=== PATIENT | male | born 1955 | race Caucasian/White ===

== ENCOUNTER 2024-09-29 13:53 | Outpatient (AMB) | payer MEDICARE, MEDICAID, SELFPAY ==
--- NOTE | 2024-09-29 13:59 | ORTHONT_ITS ---
Med/Allergies Allergies & Medications Allergies codeine Adverse Reaction (Severe, Verified 09/08/24 13:45) CHEST PAINS Subjective Visit Visit for: follow up visit Immunization / Flu Flu Vaccine in the Last 12 Months: Yes Flu Vaccine Exclusion Criteria: Already Received History of Present Illness Chief complaint: left knee pain Patient is a 68-year-old male who presents today for evaluation of his left knee. He has severe left knee osteoarthritis. This been ongoing for several years but is worsened recently. We discussed nonoperative operative options. He reports the pain is significantly affecting his quality life and happiness. He has had over 5 injections in the knee. He reports knee pains been ongoing for 10 years. We tried anti-inflammatories as well as injections. The pain is affecting his quality life and happiness. He has recovered well from his left hip replacement Personal History Red flag PMH: smoker (non smoker ) Pain Pain level (0-10): 0 Pain quality: dull Pain timing: increases with activity and stairs Associated signs & symptoms: none Ambulatory data Ambulatory device: none Treatments Improvement with previous injections: No Improvement with PT: No Improvement with NSAIDS: no Review of Systems Review of Systems: All systems negative unless otherwise noted in HPI. Exam Exam Patient is in no acute distress and is cooperative with the examination today. Patient has a normal mood and affect. Breathing is nonlabored. In no respiratory distress. Bilateral extremities were evaluated and demonstrates sensation intact to light touch. Palpable pedal pulses are present. No significant edema is present. Left hip incision is clean dry intact. He is walking with minimal limp. Left knee is stable to varus and valgus stress. Range of motion is 0 to 110 degrees. He is tender palpation medially X-rays were personally reviewed by me. This demonstrates complete Obliteration of the medial joint space. There are osteophytes medially. Assessment and Plan Problem List (1) Status post left hip replacement: Status: Acute Plan: 68-year-old Male status post left total hip replacement. He is doing well. He has minimal pain. He reports the left knee is actually what is significantly bothering him. He has complete obliteration of the medial joint space with. We talked about total knee replacement and he would like to proceed with that. He is set up for a left knee surgery in 2 weeks The nature and purpose of the total knee replacement, alternative method(s) of treatment, the material risks involved, and the possibility of complications were fully explained to the patient. The patient does NOT have any of the following contraindications to TKA: - Active infection of the knee joint, OR - Active systemic bacteremia, OR - Active skin infection or open wound at surgical site, OR - Neuropathic arthritis, OR - Severe, rapidly progressive neurological disease, OR - Severe medical condition that makes risks of surgery outweigh the potential benefit The patient was told the most common risks and complications associated with a total knee replacement include, but are not limited to: blood clots in the leg, fatal pulmonary embolism, dislocation of the prosthesis, intraoperative and postoperative fractures of the femur or tibia, infection, failure of the prosthesis or grafting materials, complications from anesthesia, reactions to blood transfusions, postoperative leg length inequality, instability of the knee replacement, nerve damage or injury, vascular injury, delayed wound healing, infection, other injury or even . In addition, there are risks associated with anesthesia given during this operation. Also, the patient was told that after undergoing a total knee replacement there may still be persistent pain or disability. The patient was informed that the success of this operation in part depends upon the mechanical devices which are going to be implanted and that these devices can fail or malfunction, and may need to be repaired or replaced and there are no guarantees as to the longevity of this device or its parts and that it or its parts could fail prematurely. The patient was also notified that during the course of surgery, there may be a need to use bone graft from donors, and that any bone graft used will be carefully screened for communicable diseases, including AIDS, hepatitis, Tono-Creutzfeldt, or other diseases, but despite the screening procedures, there is a small chance that they could contract one of these diseases. Finally, the patient was asked to follow completely and fully with all advice and recommended treatments, and that recovery and ultimate outcome are affected by their compliance with recommended treatment. We discussed the risks, benefits and treatment alternatives, and the patient is interested in proceeding with surgery. We will try to set this up as expeditiously as possible When he comes back from [place] Advanced Care Planning Discussion Advance care planning discussed with:: patient Past Medical History Past Medical History Have you ever been diagnosed with any of the following: Neurological Problems Seizures: No Subdural Hematoma: Yes Cardiology Problems Myocardial Infarction: Yes (2014? small) Congestive Heart Failure: No Edema: No Cellulitis: No Hypertension: Yes Varicose Veins: Yes Respiratory Problems Chronic Obstructive Pulmonary Disease (COPD): Yes Asthma: Yes Pneumonia: No Tuberculosis: No Sleep Apnea: No Smoking: No Smoking Exposure: No Stomache/Intestinal Problems Hepatitis: No Ulcer: Yes Gastroesophageal Reflux Disease: Yes Genital/Urinary Problems Renal Disease: No Musculoskeletal Problems Arthritis: Yes Carpal Tunnel Syndrome: Yes Fractures: Yes (pelvic bone at 19yrs old) Head,Eye,Nose,Throat Problems Cataracts: Yes Endocrine Problems Diabetes Mellitus Type 1: No Diabetes Mellitus Type 2: No Blood Problems Sickle Cell Disease: No Psychologic Problems Depression: Yes Anxiety: Yes Other Problems Hospitalization: Yes Shingles: No Falls: Yes Blood Transfusions: Yes Blood Transfusion Reaction: No Anesthesia Reactions: No Chemotherapy: No Radiation Therapy: No MRSA: No Chicken Pox: Yes Measles: Yes Mumps: Yes Cancer: Yes Surgical History Pacemaker: No
== END 2024-09-29 14:02 | disposition home or self-care (01) ==
LOC: HODSRG 13:53
PROVIDERS: PCP Family Medicine; Referring Provider Family Medicine; Supervising Provider Orthopaedic Surgery Adult Reconstructive Orthopaedic Surgery; Visit Provider Orthopaedic Surgery Adult Reconstructive Orthopaedic Surgery
DX: Z96.642 Presence of left artificial hip joint (principal); M17.12 Unilateral primary osteoarthritis, left knee; I10 Essential (primary) hypertension
CPT/HCPCS: 99213; G0463

== ENCOUNTER 2024-10-27 10:03 | Outpatient (AMB) | payer MEDICARE, MEDICAID, SELFPAY ==
[2024-10-27 10:51] VITALS: BP 122/80; PULSE 87; RESP 19; TEMP 36.1; O2SAT 94; BMI 32.4
--- NOTE | 2024-10-27 10:51 | ORTHONT_ITS ---
Vital signs 10/27/24 10:51 Height 1.85 m Height Method Stated Weight 111 kg Weight Measurement Method Standing Scale BMI 32.4 BP 122/80 Blood Pressure Source Automatic Cuff Blood Pressure Location Right Upper Arm Position Sitting Respiration 19 Pulse 87 Pulse Source Monitor Temp 97.0 F Temp Source Temporal Artery Scan Pulse Oximetry (%) 94 L Oxygen Delivery Method Room Air Med/Allergies Allergies & Medications Allergies codeine Adverse Reaction (Severe, Verified 10/27/24 10:52) CHEST PAINS Medication Reconciliation albuterol sulfate 90 mcg/actuation aerosol inhaler 2 puff inhalation Q6H PRN asthma 06/27/20 [History Confirmed 10/27/24] tamsulosin 0.4 mg capsule (Flomax) 0.4 mg PO QDAY 01/06/24 [History Confirmed 10/27/24] meloxicam 7.5 mg tablet 7.5 mg PO QDAY #45 tabs 03/24/24 [Rx Confirmed 10/27/24] acetaminophen 500 mg tablet (Acetaminophen Extra Strength) 1,000 mg (2 x 500 mg) PO Q6H PRN pain #90 tabs 10/12/24 [Rx Confirmed 10/27/24] aspirin 81 mg tablet,delayed release 81 mg PO BID #60 tabs 10/12/24 [Rx Confirmed 10/27/24] doxycycline hyclate 100 mg tablet 100 mg PO BID #14 tabs 10/12/24 [Rx Confirmed 10/27/24] gabapentin 300 mg capsule 300 mg PO .qhs #30 caps 10/12/24 [Rx Confirmed 10/27/24] hydrocodone 10 mg-acetaminophen 325 mg tablet 1 tab PO Q6H PRN pain #28 tabs 10/12/24 [Rx Confirmed 10/27/24] hydroxyzine HCl 10 mg tablet 10 mg PO TID 10/12/24 [History Confirmed 10/27/24] lisinopril 20 mg-hydrochlorothiazide 25 mg tablet 1 tab PO DAILY 10/12/24 [History Confirmed 10/27/24] montelukast 10 mg tablet 10 mg PO QPM 10/12/24 [History Confirmed 10/27/24] sennosides 8.6 mg-docusate sodium 50 mg tablet (Senna-S) 1 tab-cap PO QDAY #30 tabs 10/12/24 [Rx Confirmed 10/27/24] Subjective Visit Visit for: follow up visit and post op #1 Immunization / Flu Flu Vaccine in the Last 12 Months: Yes Flu Vaccine Exclusion Criteria: Already Received History of Present Illness Chief complaint: POST OP Marty is 2 weeks postop status post left total knee replacement. He is doing well. He has minimal pain. Pain Pain level (0-10): 7 Pain duration: CONSTANT Pain location: inside (medial), outside (lateral), anterior and posterior Pain quality: sharp, dull and aching Pain timing: increases with activity Associated signs & symptoms: numbness, weakness and stiffness Ambulatory data Ambulatory device: other (specify) (CRUTCHES) Treatments Improvement with previous injections: No Improvement with PT: No Improvement with NSAIDS: n/a Review of Systems Review of Systems: All systems negative unless otherwise noted in HPI. Exam Exam Patient is in no acute distress and is cooperative with the examination today. Patient has a normal mood and affect. Breathing is nonlabored. In no respiratory distress. Bilateral extremities were evaluated and demonstrates sensation intact to light touch. Palpable pedal pulses are present. No significant edema is present. Left hip incision is clean dry intact. He is walking with minimal limp. Left knee is stable to varus and valgus stress. Range of motion is 0 to 110 degrees. He is tender palpation medially X-rays were personally reviewed by me. This demonstrates complete Obliteration of the medial joint space. There are osteophytes medially. Assessment and Plan Problem List (1) Status post left hip replacement: Status: Acute Plan: 68-year-old Male status post left total hip replacement And left total knee replacement. He is doing well. He has minimal pain. He should start outpatient physical therapy.We will see him back in approximately 5 weeks with x-rays for routine follow-up Advanced Care Planning Discussion Advance care planning discussed with:: patient Office Procedures GNS Level of Care Nursing/Assessment Patient Status: Established Patient Nursing Assessment/Reassesment: Medication Reconciliation, Update PMH in EMR and Vital Signs Coordination of Care: Complex Care and Chronic Disease 1-5, Education Complex Pt/Fam, Consent,records obtained, informed consent, Lab and Imaging orders, Results/Orders obtained and Staff clarify orders Established Patient Charge Established Patient Point Assignment: 110 Established Patient Point Charge: EP Level 3 (80-115) Past Medical History Past Medical History Have you ever been diagnosed with any of the following: Neurological Problems Seizures: No Subdural Hematoma: Yes (has surgery in [place]) Cardiology Problems Myocardial Infarction: Yes (2014 mild) Congestive Heart Failure: No Edema: No Cellulitis: No Hypertension: Yes Varicose Veins: Yes Respiratory Problems Chronic Obstructive Pulmonary Disease (COPD): Yes Asthma: Yes Pneumonia: Yes Tuberculosis: No Sleep Apnea: No Smoking: No Smoking Exposure: No Stomache/Intestinal Problems Hepatitis: No Ulcer: Yes Gastroesophageal Reflux Disease: Yes Genital/Urinary Problems Renal Disease: No Musculoskeletal Problems Arthritis: Yes Degenerative Disk Disease: Yes Carpal Tunnel Syndrome: Yes Fractures: Yes (pelvic bone at 19yrs old) Head,Eye,Nose,Throat Problems Cataracts: Yes Endocrine Problems Diabetes Mellitus Type 1: No Diabetes Mellitus Type 2: No Blood Problems Sickle Cell Disease: No Psychologic Problems Recreational Drug Use: Yes (clean 2000) Depression: Yes Anxiety: Yes Other Problems Hospitalization: Yes Shingles: No Falls: Yes Blood Transfusions: No Blood Transfusion Reaction: No Anesthesia Reactions: No Chemotherapy: No Radiation Therapy: No MRSA: No Chicken Pox: Yes Measles: Yes Mumps: Yes Cancer: Yes Surgical History Pacemaker: No
== END 2024-10-27 11:18 | disposition home or self-care (01) ==
LOC: HODSRG 10:03
PROVIDERS: PCP Family Medicine; Referring Provider Family Medicine; Supervising Provider Orthopaedic Surgery Adult Reconstructive Orthopaedic Surgery; Visit Provider Orthopaedic Surgery Adult Reconstructive Orthopaedic Surgery
DX: Z96.642 Presence of left artificial hip joint (principal); Z96.652 Presence of left artificial knee joint; I10 Essential (primary) hypertension; I25.2 Old myocardial infarction; J44.9 Chronic obstructive pulmonary disease, unspecified; K21.9 Gastro-esophageal reflux disease without esophagitis
CPT/HCPCS: 99213; G0463

== ENCOUNTER → 2025-01-08 | Outpatient (CLI) | payer MEDICARE, MEDICAID, SELFPAY ==
[2025-01-08 15:03] LABS: Amphetamine/Methamp Scrn,U Negative (Negative); Barbiturate Screen,Urine Negative (Negative); Benzodiazepines Screen,Urine Negative (Negative); Benzoylecgonine Screen, Ur Negative (Negative); Fentanyl Screen,Urine Negative (Negative); Opiate Screen,Urine Positive (Negative); THC Screen,Urine Positive (Negative)
== END | disposition home or self-care (01) ==
LOC: SLDO 13:05
PROVIDERS: PCP Family Medicine; Referring Provider Family Medicine; Visit Provider Family Medicine
DX: M54.2 Cervicalgia (principal); Z71.51 Drug abuse counseling and surveillance of drug abuser
CPT/HCPCS: 80307

== ENCOUNTER 2025-01-12 15:04 | Outpatient (AMB) | payer MEDICARE, MEDICAID, SELFPAY ==
--- NOTE | 2025-01-12 15:20 | ORTHONT_ITS ---
Vital signs 01/12/25 15:21 Height 1.85 m Height Method Stated Weight 111.13 kg Weight Measurement Method Standing Scale BMI 32.4 BP 111/73 Blood Pressure Source Automatic Cuff Blood Pressure Location Left Upper Arm Position Sitting Respiration 18 Pulse 90 Pulse Source Monitor Temp 96.8 F Temp Source Temporal Artery Scan Pulse Oximetry (%) 92 L Oxygen Delivery Method Room Air Med/Allergies Allergies & Medications Allergies codeine Adverse Reaction (Severe, Verified 01/12/25 15:22) CHEST PAINS Medication Reconciliation albuterol sulfate 90 mcg/actuation aerosol inhaler 2 puff inhalation Q6H PRN asthma 06/27/20 [History Confirmed 01/12/25] tamsulosin 0.4 mg capsule (Flomax) 0.4 mg PO QDAY 01/06/24 [History Confirmed 01/12/25] meloxicam 7.5 mg tablet 7.5 mg PO QDAY #45 tabs 03/24/24 [Rx Confirmed 01/12/25] acetaminophen 500 mg tablet (Acetaminophen Extra Strength) 1,000 mg (2 x 500 mg) PO Q6H PRN pain #90 tabs 10/12/24 [Rx Confirmed 01/12/25] aspirin 81 mg tablet,delayed release 81 mg PO BID #60 tabs 10/12/24 [Rx Confirmed 01/12/25] doxycycline hyclate 100 mg tablet 100 mg PO BID #14 tabs 10/12/24 [Rx Confirmed 01/12/25] gabapentin 300 mg capsule 300 mg PO .qhs #30 caps 10/12/24 [Rx Confirmed 01/12/25] hydrocodone 10 mg-acetaminophen 325 mg tablet 1 tab PO Q6H PRN pain #28 tabs 10/12/24 [Rx Confirmed 01/12/25] hydroxyzine HCl 10 mg tablet 10 mg PO TID 10/12/24 [History Confirmed 01/12/25] lisinopril 20 mg-hydrochlorothiazide 25 mg tablet 1 tab PO DAILY 10/12/24 [History Confirmed 01/12/25] montelukast 10 mg tablet 10 mg PO QPM 10/12/24 [History Confirmed 01/12/25] sennosides 8.6 mg-docusate sodium 50 mg tablet (Senna-S) 1 tab-cap PO QDAY #30 tabs 10/12/24 [Rx Confirmed 01/12/25] Exam Exam Patient is in no acute distress and is cooperative with the examination today. Patient has a normal mood and affect. Breathing is nonlabored. In no respiratory distress. Bilateral extremities were evaluated and demonstrates sensation intact to light touch. Palpable pedal pulses are present. No significant edema is present. Left hip incision is clean dry intact. He is walking with minimal limp. Left knee is stable to varus and valgus stress. Range of motion is 0 to 110 degrees. He is tender palpation medially Assessment and Plan Problem List (1) Status post left hip replacement: Status: Acute Plan: 68-year-old Male status post left total hip replacement And left total knee replacement. He is doing well. He has minimal pain. He is doing well. We will see him in approximately 4 months with radiographic follow-up. Advanced Care Planning Discussion Advance care planning discussed with:: patient Office Procedures GNS Level of Care Nursing/Assessment Patient Status: Established Patient Nursing Assessment/Reassesment: Medication Reconciliation, Update PMH in EMR and Vital Signs Coordination of Care: Complex Care and Chronic Disease 1-5, Education Complex Pt/Fam, Consent,records obtained, informed consent, Results/Orders obtained and Staff clarify orders Established Patient Charge Established Patient Point Assignment: 95 Established Patient Point Charge: EP Level 3 (80-115) MA Intake Visit Data Collection New Patient or Established: Established Patient (seen at [facility] within 3 years) Reason for Visit:: FOLLOW UP Seen by Clinical Staff ONLY (RN/MA): No Leasing Associate Required: No PCP or OBGYN visit in last 3 months: Yes Hx Now: No Do You Feel Safe at Home: Yes Authorities Contacted: N/A Questionairres Past Medical History Past Medical History Have you ever been diagnosed with any of the following: Neurological Problems Seizures: No Subdural Hematoma: Yes (has surgery in [place]) Cardiology Problems Myocardial Infarction: Yes (2014 mild) Congestive Heart Failure: No Edema: No Cellulitis: No Hypertension: Yes Varicose Veins: Yes Respiratory Problems Chronic Obstructive Pulmonary Disease (COPD): Yes Asthma: Yes Pneumonia: Yes Tuberculosis: No Sleep Apnea: No Smoking: No Smoking Exposure: No Stomache/Intestinal Problems Hepatitis: No Ulcer: Yes Gastroesophageal Reflux Disease: Yes Genital/Urinary Problems Renal Disease: No Musculoskeletal Problems Arthritis: Yes Degenerative Disk Disease: Yes Carpal Tunnel Syndrome: Yes Fractures: Yes (pelvic bone at 19yrs old) Head,Eye,Nose,Throat Problems Cataracts: Yes Endocrine Problems Diabetes Mellitus Type 1: No Diabetes Mellitus Type 2: No Blood Problems Sickle Cell Disease: No Psychologic Problems Recreational Drug Use: Yes (clean 2000) Depression: Yes Anxiety: Yes Other Problems Hospitalization: Yes Shingles: No Falls: Yes Blood Transfusions: No Blood Transfusion Reaction: No Anesthesia Reactions: No Chemotherapy: No Radiation Therapy: No MRSA: No Chicken Pox: Yes Measles: Yes Mumps: Yes Cancer: Yes Surgical History Pacemaker: No Subjective Visit Visit for: follow up visit Immunization / Flu Flu Vaccine in the Last 12 Months: No Flu Vaccine Exclusion Criteria: No Exclusion Criteria History of Present Illness Chief complaint: Left hip and knee Marty is a pleasant 69-year-old male who is 3 months out from the left knee and 1 year out from the left hip. He is doing well. He has minimal pain. His right side is doing well Pain Pain level (0-10): 0 Associated signs & symptoms: none Ambulatory data Ambulatory device: none Treatments Improvement with previous injections: No Improvement with PT: No Improvement with NSAIDS: no Review of Systems Review of Systems: All systems negative unless otherwise noted in HPI.
[2025-01-12 15:21] VITALS: BP 111/73; PULSE 90; RESP 18; TEMP 36; O2SAT 92; BMI 32.4
== END 2025-01-12 15:25 | disposition home or self-care (01) ==
LOC: HODSRG 15:04
PROVIDERS: PCP Family Medicine; Referring Provider Family Medicine; Supervising Provider Orthopaedic Surgery Adult Reconstructive Orthopaedic Surgery; Visit Provider Orthopaedic Surgery Adult Reconstructive Orthopaedic Surgery
DX: Z96.642 Presence of left artificial hip joint (principal); Z96.652 Presence of left artificial knee joint; I10 Essential (primary) hypertension; I25.2 Old myocardial infarction
CPT/HCPCS: 99213; G0463

== ENCOUNTER → 2025-01-12 | Outpatient (CLI) | payer MEDICARE, MEDICAID, SELFPAY ==
--- NOTE | 2025-01-12 14:36 | XR_ITS ---
Examination: Lumbar spine, 5 views Technique: Lumbar spine AP, lateral, coned lateral lower lumbar spine, bilateral obliques 5 views Exam date and time: January 12, 2025 1443 hours Indications: Low back pain several months. FINDINGS: Prominent osteopenia Diffuse facet arthropathy Diffuse lumbar degenerative disease, advanced L5-S1 Prominent lumbar spondylosis IMPRESSION: Diffuse lumbar degenerative disc disease, prominent L5-S1
== END | disposition home or self-care (01) ==
PROVIDERS: PCP Family Medicine; Referring Provider Nurse Practitioner Family; Visit Provider Nurse Practitioner Family
DX: M51.369 Other intervertebral disc degeneration, lumbar region without mention of lumbar back pain or lower extremity pain (principal); M51.379 Other intervertebral disc degeneration, lumbosacral region without mention of lumbar back pain or lower extremity pain
CPT/HCPCS: 72110

== ENCOUNTER → 2025-01-12 | Outpatient (CLI) | payer MEDICARE, MEDICAID, SELFPAY ==
[2025-01-12 19:02] LABS: Amphetamine/Methamp Scrn,U Negative (Negative); Barbiturate Screen,Urine Negative (Negative); Benzodiazepines Screen,Urine Negative (Negative); Benzoylecgonine Screen, Ur Negative (Negative); Fentanyl Screen,Urine Negative (Negative); Opiate Screen,Urine Positive (Negative); THC Screen,Urine Positive (Negative)
== END | disposition home or self-care (01) ==
LOC: SLDO 17:16
PROVIDERS: PCP Family Medicine; Referring Provider Family Medicine; Visit Provider Family Medicine
DX: M54.2 Cervicalgia (principal); Z71.51 Drug abuse counseling and surveillance of drug abuser
CPT/HCPCS: 80307

== ENCOUNTER 2025-02-08 09:01 | Inpatient (IN) | payer MEDICARE, MEDICAID, SELFPAY ==
[2025-02-08] VITALS (7 sets, daily range): BP systolic 145–173; BP diastolic 60–88; PULSE 44–64; RESP 19–23; TEMP 36.3–36.9; O2SAT 93–100; BMI 31.8
--- NOTE | 2025-02-08 09:14 | XR_ITS ---
Examination: CT abdomen and pelvis without contrast. Coronal 3-D reconstructions. Sagittal 2-D reconstructions. Date and time of exam:February 08, 2025 0922 hours INDICATIONS: Bilateral flank and back pain beginning last night CTDI: vol (mGy): 12.8 DLP: (mGycm): 782 Technique: Axial images of the abdomen have been obtained, 3 mm slice thickness Intravenous contrast material has not been administered. Low dose protocols were performed. One or more of the following dose reduction techniques were used; automated exposure control, adjustment of the mA and/or KV according to patient size, use of iterative reconstruction technique. Findings: No focal liver or splenic lesion Gallstones Small pancreatic calcifications 11 mm soft tissue mass posterior right kidney with calcifications No hydronephrosis or ureteral calculi Aortic calcification no aneurysmal dilatation Normal appendix No bowel obstruction No diverticulitis No bladder mass Left hip arthroplasty with satisfactory alignment Advanced right hip osteoarthritis IMPRESSION: Cholelithiasis, recommend hepatobiliary sonography follow-up 11 mm soft tissue mass posterior right kidney with calcifications, recommend dedicated renal sonography follow-up to exclude solid mass No hydronephrosis or ureteral calculi Normal appendix Advanced right hip osteoarthritis
--- NOTE | 2025-02-08 09:15 | EKG_ITS ---
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
--- NOTE | 2025-02-08 09:15 | PD.EDRME ---
Rapid Medical Screening Exam RME Arrival date/time: 02/08/25 09:01 69-year-old male with a history of hypertension presents to the emergency room with a chief complaint of 10 out of 10 upper abdominal pain x 1 day, vomiting. I have greeted and performed a focused initial assessment of this patient. A comprehensive ED assessment and evaluation of the patient, analysis of all test results, and completion of the medical decision making process will be conducted by additional ED providers. Chief Complaint: Abdominal Pain Time Seen by Provider: 02/08/25 09:05 Vital signs: Vital Signs Temperature 98.1 F 02/08/25 09:12 Pulse Rate 50 L 02/08/25 09:12 Respiratory Rate 19 02/08/25 09:12 Blood Pressure 173/69 H 02/08/25 09:12 Pulse Oximetry (%) 98 02/08/25 09:12 Oxygen Delivery Method Room Air 02/08/25 09:12 Vital signs reviewed by provider: Yes
[2025-02-08 10:19] LABS: Basophils % (Auto) 0 % (0-2.5); Eosinophils % (Auto) 0 % (0-10); Hematocrit 39.4 % (41.0-53.0); Hemoglobin 13.6 g/dL (13.5-16.0); Immature Granulocytes % (Auto) 0 % (0-0); Immature Granulocytes Auto 0.05 Thou/mm3 (0.00-0.00); Lymphocytes # (Auto) 1.4 Thou/mm3 (1.0-4.8); Lymphocytes % (Auto) 8 % (10-50); Mean Corpuscular HGB Conc 34.5 g/dl (31.0-37.0); Mean Corpuscular Hemoglobin 28.4 pg (25.0-35.0); Mean Corpuscular Volume 82 fL (80-100); Monocytes # (Auto) 0.8 Thou/mm3 (0.0-0.8); Monocytes % (Auto) 5 % (0-12); Neutrophils # (Auto) 14.5 Thou/mm3 (1.8-7.7); Neutrophils % (Auto) 86 % (37-80); Nucleated Red Blood Cell % 0 /100 WBC (0); Platelet Count 246 Thou/mm3 (140-440); RDW Standard Deviation 43.5 fL (35.1-43.9); Red Blood Count 4.79 Miln/mm3 (4.50-5.90); White Blood Count 16.8 Thou/mm3 (3.8-10.6)
--- NOTE | 2025-02-08 10:23 | PC.NURSE ---
Patient states pain 10/10. Informed ER provider and received verbal order for 4mg morphine IV and 4mg zofran IV.
[2025-02-08] MEDS: ONDANSETRON INJ 2 MG/ML INJ 2 ML 4 MG IV (10:29)
[2025-02-08] MEDS: MORPHINE SULF INJ 10 MG/ML VIAL 4 MG IVP ×2 (10:30→14:44)
[2025-02-08 10:36] LABS: Alanine Aminotransferase 70 U/L (10-49); Albumin, Serum 4.6 gm/dL (3.4-4.8); Albumin/Globulin Ratio 1.4 (1.2-2.2); Alkaline Phosphatase 61 U/L (46-116); Anion Gap 11 (7-16); Aspartate Amino Transferase 77 U/L (0-34); B-Type Natriuretic Peptide 65 pg/mL (0-100); BUN/Creatinine Ratio 18 Ratio (12-20); Bilirubin,Total 0.9 mg/dL (0.3-1.2); Blood Urea Nitrogen 14 mg/dL (9-23); Calcium 10.3 mg/dL (8.3-10.6); Calcium (Corrected) 10.3 mg/dL (8.5-10.1); Carbon Dioxide 23.6 mMol/L (20.0-31.0); Chloride 103 mMol/L (98-107); Creatinine (Component) 0.8 mg/dL (0.6-1.3); Globulin 3.4 gm/dL (2.3-3.5); Glucose 171 mg/dL (74-106); Lipase 34 U/L (12-53); Osmolality,Calculated 280 (275-295); Potassium 3.6 mMol/L (3.4-5.1); Sodium 138 mMol/L (136-145); Troponin I < 0.020 ng/mL (0.0-0.045); eGFR > 60 See Note
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
--- NOTE | 2025-02-08 11:26 | XR_ITS ---
Examination: Abdomen sonogram, Limited Date and time of exam: February 08, 2025 1230 hours INDICATIONS: Right upper abdominal pain and tenderness today Technique: Real-time moreno scale transabdominal sonographic images of the upper abdomen obtained. Findings: Multiple gallstones Gallbladder wall 0.8 cm Common bile duct 0.4 cm Pancreatic head 3.7 cm Liver 23.3 cm fatty infiltration Normal hepatopedal portal venous flow Patent IVC IMPRESSION: Acute calculus cholecystitis Prominent pancreatic head Pancreatic mass is not visualized on the noncontrast CT abdomen study today
[2025-02-08] MEDS: KETOROLAC INJ 30 MG/ML VIAL 15 MG IVP ×2 (11:38→13:14)
[2025-02-08 12:59] LABS: Bilirubin,Urine Negative (Negative); Blood,Urine 2+ (Negative); Clarity,Urine Clear (Clear/Hazy); Collection Type, Urine Clean Catch; Color,Urine Lt-Yellow (Lt Yel-Yel); Glucose, Urine Trace (Negative); Ketones,Urine 2+ (Negative); Leukocyte Esterase,Urine Negative (Negative); Nitrite,Urine Negative (Negative); Protein,Urine 1+ (Neg - Trace); RBC,Urine 1 /hpf (0-3); Specific Gravity,Urine 1.019 (1.001-1.035); Squamous Epithelial Cell,Urine 0 /hpf (0-5); Urobilinogen,Urine Negative mg/dL (0.0-1.0); WBC,Urine 1 /hpf (0-5)
[2025-02-08] MEDS: SODIUM CHLORIDE 0.9% 1000 ML 1,000 ML 999 ML IV (14:53)
[2025-02-08] MEDS: PROMETHAZINE INJ 12.5 MG in SODIUM CHLORIDE 0.9% 50 ML 2.5 MG IV (15:32)
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
[2025-02-08] MEDS: ACETAMINOPHEN IVPB 1,000 MG/100 ML VIAL 250 MG IV (16:04)
[2025-02-08] MEDS: PIPER/TAZO INJ 4.5 GM in SODIUM CHLORIDE 0.9% (POP) 100 ML IV ×2 (16:49→21:35)
[2025-02-08] MEDS: HYDROmorphone INJ 2 MG/ML VIAL 1 MG IVP ×2 (17:06→21:16)
[2025-02-08] MEDS: SODIUM CHLORIDE 0.9% 1000 ML 1,000 ML 125 ML IV (23:57)
[2025-02-09] VITALS (20 sets, daily range): BP systolic 129–174; BP diastolic 67–103; PULSE 57–102; RESP 13–24; TEMP 36.2–37.2; O2SAT 90–98
[2025-02-09] MEDS: ACETAMINOPHEN IVPB 1,000 MG/100 ML VIAL 250 MG IV ×4 (00:23→17:57)
[2025-02-09] MEDS: PIPER/TAZO INJ 4.5 GM in SODIUM CHLORIDE 0.9% (POP) 100 ML IV ×2 (05:02→21:42)
[2025-02-09] MEDS: SODIUM CHLORIDE 0.9% 1000 ML 1,000 ML 125 ML IV (09:13)
[2025-02-09] MEDS: Lisinopril 20 MG TABLET PO (09:14)
[2025-02-09] MEDS: ALBUTEROL INH 8 GM 2 PUFF INH (09:58)
[2025-02-09] MEDS: HYDROmorphone INJ 2 MG/ML VIAL 1 MG IVP (10:34)
[2025-02-09] MEDS: oxyCODONE HCL 5 MG IR TAB 10 MG PO ×2 (11:31→17:56)
--- NOTE | 2025-02-09 14:35 | ESOP_ITS ---
Date of Procedure 02/09/25 Pre Op Diagnosis Acute cholecystitis Post Op Diagnosis Gangrenous cholecystitis Procedure Laparoscopic cholecystectomy Findings Gangrenous gallbladder with many stones Procedure Description After discussion of risks and benefits, patient was brought to the operating room, SCDs were placed and general anesthesia was induced. He received preoperative antibiotics and was prepped and draped in usual sterile fashion. After timeout, because of his previous surgeries with a large midline scar and a small upper transverse scar, I opted to enter the abdomen at Edwards's point approximately 2 fingerbreadths below the left costal margin. I infiltrated the skin with half percent Marcaine and made incision with a #15 blade. The tissues were elevated with towel clamps and a Veress needle was placed through the incision. Proper positioning was confirmed with a drop test and the abdomen was insufflated to 15 mmHg. At that point the Veress needle was exchanged for a 5 mm camera using a Visiport technique. There were no signs of injury from the point of entry. The abdomen was examined and there were noted to be adhesions to the midline of the abdomen involving the small bowel and the colon. A 5 mm port was placed inferior to the umbilicus under direct vision taking care to avoid these adhesions. 3 additional ports were placed under direct vision, one 12 mm at the epigastrium, one 5 mm right subcostal and one 5 mm right anterior axillary line. Patient was placed in reverse Trendelenburg. The gallbladder was finally visualized after retracting the adherent omentum and it was noted to have patchy areas of gangrene. It was very thick and edematous so it was first aspirated with return of approximately 120 cc of dark bile. The fundus of the gallbladder was then grasped and retracted cephalad and the infundibulum was grasped and retracted laterally. The gallbladder was very friable and upon g rasping there were unavoidable cholecystotomies through which gallstones were retrieved. The cystic duct was noted to be somewhat dilated and I was able to use the [place] device to milk stones from the cystic duct into the open neck of the gallbladder and remove them. The cystic duct was easily identified as it was confluent with the open neck of the gallbladder; because the neck was open and the duct was somewhat short I was not able to place 2 clips as I normally would but placed 1 which was fully across the duct and there were no signs of leakage. I considered placing an Endoloop but was concerned that it might lead to loss of the clip and/or injury to the common bile duct. The cystic artery was clipped and transected in the usual fashion. The gallbladder was removed from the gallbladder bed using electrocautery. Hemostasis of the gallbladder bed was achieved with electrocautery and reinforced with Surgicel powder. The specimen was removed in an Endo Catch bag via the epigastric port and the epigastric fascia was closed with a 0 Vicryl suture using a Han-Estelita. The abdomen was inspected and there were no signs of bleeding or injury to any of the bowels that were adherent to the abdominal wall. Pneumoperitoneum was released and ports were removed under direct vision. Incisions were closed with 4 Monocryl and reinforced with Dermabond. Patient was extubated and brought to PACU in stable condition Pathology / specimen Other (Gallbladder) Estimated Blood Loss 50 Surgeon Irasema Pope MD Surgical Staff Operation Date: 02/09/25 12:45 Case Staff Anesthesiologist: Ayaz Finley RN First Assistant: Silva Garcia
--- NOTE | 2025-02-09 14:42 | SUR.PHASEI ---
pt received from OR in recovery bay 5. pt asleep but responds to voice, breathing unlabored on 8l oxymask. v/s stable. pt dressing to abd dermabond x4 cdi. report received from Georgina Bennett RN.
[2025-02-09] MEDS: ALBUTEROL RT 2.5 MG/3 ML NEBU INH (15:05)
[2025-02-09] MEDS: fentaNYL CIT INJ 50 mCg/ML AMP 2ML 25 MCG IV ×5 (15:10→15:48)
[2025-02-09] MEDS: HYDROmorphone INJ 2 MG/ML VIAL 0.4 MG IVP ×4 (15:59→16:39)
--- NOTE | 2025-02-09 16:45 | SUR.PHASEI ---
pt awake and alert, breathing unlabored on 2l nc. v/s stable. pt dressing to abd dermabond x4 cdi. report called to Jenifer GARCIA. pt will be transferred to floor at this time.
[2025-02-09] MEDS: hydrALAZINE INJ 20 MG/ML VIAL 10 MG IV (17:52)
--- NOTE | 2025-02-09 21:36 | PC.NURSE ---
pt complaining of pain when burping, Dr. Pope was made aware, new order for pt, see MAR.
[2025-02-09] MEDS: SIMETHICONE 80 MG CHEW PO (21:42)
[2025-02-10] VITALS (8 sets, daily range): BP systolic 127–153; BP diastolic 74–99; PULSE 56–95; RESP 18–24; TEMP 36.3–36.5; O2SAT 92–98
[2025-02-10] MEDS: oxyCODONE HCL 5 MG IR TAB 10 MG PO ×2 (00:08→05:42)
[2025-02-10] MEDS: ACETAMINOPHEN IVPB 1,000 MG/100 ML VIAL 250 MG IV ×2 (00:09→05:41)
--- NOTE | 2025-02-10 00:30 | PC.NURSE ---
Pm pharmacist was made aware about the warning message that popped up after scanning acetaminophen 1000 mg. PM pharmacist, Ursula, stated that it is okay to give the mid night dose of acetaminophen IV 1000 mg.
--- NOTE | 2025-02-10 02:24 | W.PC.ACHO ---
Active Medications Generic Name Dose Route Start Last Admin Trade Name Freq PRN Reason Stop Dose Admin Albuterol 2 puff 02/09/25 08:06 02/09/25 09:58 Albuterol Inh 8 Gm INH 03/11/25 08:05 2 puff Q4HR PRN Administration SHORTNESS OF BREATH OR WHEEZE Duloxetine HCl 60 mg 02/10/25 09:00 Duloxetine Hcl 30 Mg Capsule PO 03/12/25 08:59 QDAY JD Hydralazine HCl 10 mg 02/08/25 15:44 02/09/25 17:52 Hydralazine Inj 20 Mg/Ml Vial IV 03/10/25 15:44 10 mg Q8H PRN Administration SBP > 160 Hydrochlorothiazide 25 mg 02/10/25 09:00 Hydrochlorothiazide 12.5 Mg Capsule PO 03/12/25 08:59 DAILY JD Hydromorphone HCl 1 mg 02/08/25 15:39 02/09/25 10:34 Hydromorphone Inj 2 Mg/Ml Vial IVP 02/13/25 15:44 1 mg Q3H PRN Administration PAIN SCALE 7-10 (Severe Piperacillin Sod/Tazobactam 100 mls @ 200 mls/hr 02/08/25 15:45 02/09/25 21:42 Sod 4.5 gm/ Sodium Chloride IV 02/15/25 15:44 200 mls/hr Q8HR JD Administration Acetaminophen 1,000 mg in 100 mls @ 250 mls/hr 02/09/25 17:10 02/10/25 00:09 Ofirmev Inj IV 02/10/25 12:23 250 mls/hr Q6HR JD Administration Ketorolac Tromethamine 15 mg 02/08/25 15:39 Ketorolac Inj 30 Mg/Ml Vial IVP 02/13/25 15:38 Q6H PRN PAIN SCALE 4-6 (Moderate Lisinopril 20 mg 02/10/25 09:00 Lisinopril 20 Mg Tablet PO 03/12/25 08:59 DAILY JD Ondansetron HCl 4 mg 02/08/25 15:42 Ondansetron Inj 2 Mg/Ml Inj 2 Ml IV 03/10/25 15:44 Q6H PRN NAUSEA OR VOMITING Protocol Oxycodone HCl 10 mg 02/08/25 18:00 02/10/25 00:08 Oxycodone Hcl 5 Mg Ir Tab PO 02/13/25 17:59 10 mg Q6HR JD Administration Sennosides 1 tab 02/10/25 09:00 Senna/Docusate Sod 1 Tab Tablet PO 03/12/25 08:59 QDAY JD Protocol Simethicone 80 mg 02/09/25 21:34 02/09/25 21:42 Simethicone 80 Mg Chew PO 03/11/25 21:33 80 mg QID PRN Administration GAS Tamsulosin HCl 0.4 mg 02/10/25 09:00 Tamsulosin Hcl 0.4 Mg Capsule PO 03/12/25 08:59 QDAY [facility] Diet Category Date Time Status Diet Clear Liquid Diet 02/09/25 Dinner Active Consults Category Date Time Status Referral Respiratory Therapy Stat Cons 02/09/25 08:06 Active IV Insertion/Site IV Catheter Type [18g Right Peripheral IV Antecubital #1] IV Catheter Type [18g Right Peripheral IV Antecubital #1] IV Catheter Type [18g Right Peripheral IV Antecubital #1] Neurology Patient Orientation Person,Place,Time Patient Orientation Person,Place,Time Coma Scale Total 15 Coma Scale Total 15 Respiratory Breath Sounds [Bilateral Bases Wheezing,Coarse Inspiratory & Expiratory] Breath Sounds [Bilateral Bases Clear,Diminished Inspiratory & Expiratory] Breath Sounds [Bilateral Bases Clear Inspiratory & Expiratory] Breath Sounds [Bilateral Bases Wheezing Inspiratory & Expiratory] Breath Sounds [Bilateral Bases Wheezing,Coarse Inspiratory & Expiratory] Pulse Oximetry (%) 93 Pulse Oximetry (%) 93 Pulse Oximetry (%) 98 Pulse Oximetry (%) 98 Pulse Oximetry (%) 95 Pulse Oximetry (%) 95 Pulse Oximetry (%) 95 Pulse Oximetry (%) 97 Pulse Oximetry (%) 97 Pulse Oximetry (%) 98 Pulse Oximetry (%) 98 Pulse Oximetry (%) 98 Pulse Oximetry (%) 98 Pulse Oximetry (%) 97 Pulse Oximetry (%) 96 Pulse Oximetry (%) 98 Pulse Oximetry (%) 95 Pulse Oximetry (%) 94 Oxygen Delivery Method Room Air Oxygen Delivery Method Nasal Cannula Oxygen Delivery Method Nasal Cannula Oxygen Delivery Method Nasal Cannula Oxygen Delivery Method Nasal Cannula Oxygen Delivery Method Nasal Cannula Oxygen Delivery Method Oxy Mask Oxygen Delivery Method Oxy Mask Oxygen Delivery Method Oxy Mask Oxygen Delivery Method Oxy Mask Oxygen Delivery Method Oxy Mask Oxygen Delivery Method Room Air Oxygen Flow Rate 2 Oxygen Flow Rate 2 Oxygen Flow Rate 2 Oxygen Flow Rate 2 Oxygen Flow Rate 2 Oxygen Flow Rate 8 Oxygen Flow Rate 8 Oxygen Flow Rate 8 Oxygen Flow Rate 8 Oxygen Flow Rate 8 Bowels Date of Last Bowel Movement 02/08/25 Date of Last Bowel Movement 02/08/25 Date of Last Bowel Movement 02/08/25
--- NOTE | 2025-02-10 02:24 | PC.NURSE ---
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 Will continue to monitor pt at this time, currently asleep.
[2025-02-10] MEDS: PIPER/TAZO INJ 4.5 GM in SODIUM CHLORIDE 0.9% (POP) 100 ML IV (05:44)
[2025-02-10] MEDS: TAMSULOSIN HCL 0.4 MG CAPSULE PO (08:40)
[2025-02-10] MEDS: hydroCHLOROthiazide 12.5 MG CAPSULE 25 MG PO (08:41)
[2025-02-10] MEDS: DULoxetine HCL 30 MG CAPSULE 60 MG PO (08:41)
[2025-02-10] MEDS: Lisinopril 20 MG TABLET PO (08:41)
[2025-02-10] MEDS: SENNA/DOCUSATE SOD 1 TAB TABLET PO (08:42)
[2025-02-10] MEDS: ALBUTEROL INH 8 GM 2 PUFF INH (09:25)
[2025-02-10] MEDS: SODIUM CHLORIDE RT SOL 0.9% 3 ML NEBU INH (09:51)
[2025-02-10] MEDS: ALBUTEROL RT 2.5 MG/0.5 ML NEBU 10 MG INH (09:51)
--- NOTE | 2025-02-10 10:06 | PD.SURPROG ---
Documentation for date of: 02/10/25 Subjective Subjective Brief History: 69M presenting with severe abdominal pain. Patient reports symptoms began last night suddenly, not related to eating, with severe pain in the right upper quadrant associated with nausea. This morning pain persisted, he tried taking Pepto-Bismol which did not provide relief and so he came to the ER. Workup is consistent with acute cholecystitis PMH: HTN, chronic pain PSH: Multiple ventral hernia repairs with mesh, most recently done last year, knee and hip surgeries, remote laparotomy for trauma Meds: No antiplatelet or anticoagulation. Patient takes [place] 10 mg 3-4 times a day for chronic pain Allergies: Codeine Narrative: Pain controlled, no nausea, tolerating liquids, vitals remaining normal Exam Vital Signs Temp Pulse Resp BP Pulse Ox O2 Del Method O2 Flow Rate 97.3 F 89 22 H 130/76 94 L Room Air 2 02/10/25 08:00 02/10/25 09:54 02/10/25 09:54 02/10/25 08:41 02/10/25 09:54 02/10/25 08:00 02/09/25 16:45 Constitutional Constitutional: no acute distress Routine Respiratory Exam Respiratory: Present wheezes Routine Abdominal Exam Abdominal: Present soft; Absent tenderness or distended Results Results: Laboratory Laboratory results: results reviewed Assessment & Plan Plan 69M with history of multiple ventral hernia repairs, asthma now s/p laparoscopic cholecystectomy with findings of gangrenous cholecystitis 02/09, recovering well overall Appreciate respiratory therapy recs Advance diet DC plan for today Procedures Procedures Laparoscopic cholecystectomy
--- NOTE | 2025-02-10 10:09 | ESDS_ITS ---
Planned Discharge Date 02/10/25 DS: Providers Provider Date of admission: 02/08/25 15:39 Primary care physician: Jennyfer Vang MD Admitting Provider: Irasema Pope MD Attending Provider on Admission: Irasema Pope MD Consults: 02/08/25 14:37 Consult to General Surgery Stat Comment: Consulting Provider: Irasema Pope 02/09/25 08:06 Referral Respiratory Therapy Stat Comment: Attending Provider on DC: Irasema Pope MD Discharging Provider: Irasema Pope MD Diagnosis Discharge Diagnosis (1) Gangrenous cholecystitis: Status: Acute Problem List Completed Was Problem List Reviewed/Reconciled?: Yes Hospital Course Brief History: 69M presenting with severe abdominal pain. Patient reports symptoms began last night suddenly, not related to eating, with severe pain in the right upper quadrant associated with nausea. This morning pain persisted, he tried taking Pepto-Bismol which did not provide relief and so he came to the ER. Workup is consistent with acute cholecystitis PMH: HTN, chronic pain PSH: Multiple ventral hernia repairs with mesh, most recently done last year, knee and hip surgeries, remote laparotomy for trauma Meds: No antiplatelet or anticoagulation. Patient takes [place] 10 mg 3-4 times a day for chronic pain Allergies: Codeine Exam Vital Signs Temp Pulse Resp BP Pulse Ox O2 Del Method O2 Flow Rate 97.3 F 89 22 H 130/76 94 L Room Air 2 02/10/25 08:00 02/10/25 09:54 02/10/25 09:54 02/10/25 08:41 02/10/25 09:54 02/10/25 08:00 02/09/25 16:45 Constitutional Constitutional: no acute distress Routine Respiratory Exam Respiratory: Present no resp distress Routine Abdominal Exam Abdominal: Present soft; Absent tenderness or distended Discharge Plan Plan Patient Disposition: HOME (Self Care) Prescriptions/Referrals Prescriptions/Med Rec: No Action meloxicam 7.5 mg tablet 7.5 mg PO QDAY Qty: 45 3RF albuterol sulfate 90 mcg/actuation Hfa Aerosol Inhaler 2 puff INHALATION Q6H PRN (Reason: asthma) lisinopril-hydrochlorothiazide 20-25 mg Tablet 1 tab PO DAILY montelukast 10 mg Tablet 10 mg PO QPM hydroxyzine HCl 10 mg Tablet 10 mg PO TID sennosides-docusate sodium [Senna-S] 8.6-50 mg tablet 1 tab-cap PO QDAY Qty: 30 0RF aspirin 81 mg tablet,delayed release (DR/EC) 81 mg PO BID Qty: 60 0RF acetaminophen [Acetaminophen Extra Strength] 500 mg tablet 1,000 mg PO Q6H MDD 1000mg PRN (Reason: pain) Qty: 90 0RF gabapentin 300 mg capsule 300 mg PO .qhs Qty: 30 0RF doxycycline hyclate 100 mg tablet 100 mg PO BID Qty: 14 0RF hydrocodone-acetaminophen 10-325 mg tablet 1 tab PO Q6H MDD 40 PRN (Reason: pain) Qty: 28 0RF tamsulosin [Flomax] 0.4 mg Capsule 0.4 mg PO QDAY duloxetine 60 mg capsule,delayed release(DR/EC) PO Patient Comments: TAKE ONE CAPSULE BY MOUTH EVERY DAY FOR NERVE PAIN Referrals: Irasema Pope MD [Physician] - (You will receive a phone call to confirm a follow-up appointment with me in 2 weeks) Jennyfer Vang MD [Primary Care Provider] - Patient/Caregiver Discharge Instructions Other Discharge Activity Instructions:: Avoid lifting objects greater than 10 pounds for 6 weeks You may resume showering tomorrow, 02/11 It is okay to get incisions wet, pat them dry after Your incisions have skin glue on them which will fall off on its own and does not need to be replaced If you develop worsening pain, nausea/vomiting, fever or signs of jaundice please seek care in ER Education Materials: After Gallbladder Surgery, Preventing Surgical Site Infections Print Language: Estonian Stand Alone Forms: [employer]ul[employer] Award Info., Patient Portal Info Letter Discharge Order Discharge Orders: Discharge (Routine); Ordered 02/10/25 Ordered By: Irasema Pope Results Results: Laboratory Laboratory results: results reviewed Results: Imaging US - abdomen: report reviewed Procedures Procedure Date 02/09/25 Procedures Laparoscopic cholecystectomy
--- NOTE | 2025-02-10 15:36 | PC.SS ---
Patient is alert/oriented. Patient was able to verify demographics. Patient was admitted for acute cholecystitis. Patient states he's independent with ADL's. He uses 02 ([employer]) at night only. Patient uses a nebulizer machine as well. No other DME. Patient resides with . No major health problems. Patient pharmacy: [facility] PCP: Dr. Layla Vang. Last appt. last month. Patient d/c plan is to return home. is alt medical decision maker. Transportation to be provided by family. No further d/c needs. alt medical decison maker: , Silvia,
== END 2025-02-10 12:20 | disposition home or self-care (01) | DRG 419 ==
LOC: SERX 15:43 → SERHOLD 15:57 → S3SX 20:58
PROVIDERS: Nurse Practitioner Family; Admitting Provider Surgery; Emergency Provider Emergency Medicine; PCP Family Medicine; Visit Provider Surgery
PROC: 0FT44ZZ Resection of Gallbladder, Percutaneous Endoscopic Approach (ICD-10-PCS; CPT 47562; principal; 2025-02-09 12:30)
DX: K80.00 Calculus of gallbladder with acute cholecystitis without obstruction (principal); I10 Essential (primary) hypertension; K82.A1 Gangrene of gallbladder in cholecystitis; G89.29 Other chronic pain; K43.9 Ventral hernia without obstruction or gangrene; J45.909 Unspecified asthma, uncomplicated; Z88.5 Allergy status to narcotic agent; Z79.899 Other long term (current) drug therapy
CPT/HCPCS: 36415; 74176; 76705; 80053; 81001; 83690; 83880; 84484; 85025; 87086; 93005; 94640; 94664; 96361; 96365; 96367; 96375; 96376; 99285; A4217; A4649; J0131; J0360; J0690; J0694; J1100; J1885; J2250; J2270; J2371; J2405; J2543; J2550; J2704; J3010; J3490; J7030; A9270; J1596; J1805

== ENCOUNTER 2025-02-25 14:10 | Outpatient (AMB) | payer MEDICARE, MEDICAID, SELFPAY ==
[2025-02-25 14:23] VITALS: BP 112/64; PULSE 66; RESP 18; TEMP 36.1; O2SAT 95; BMI 33.7
--- NOTE | 2025-02-25 14:25 | GSCOFFNT_ITS ---
Vital Signs - [facility] 02/25/25 14:23 02/25/25 14:26 Height 1.85 m Height Method Stated Weight 115.666 kg Weight Measurement Method Standing Scale BMI 33.7 BP 112/64 112/64 Blood Pressure Source Automatic Cuff Blood Pressure Location Right Upper Arm Position Sitting Respiration 18 18 Pulse 66 66 Pulse Source Monitor Temp 96.9 F 96.9 F Temp Source Temporal Artery Scan Pulse Oximetry (%) 95 95 Oxygen Delivery Method Room Air Med/Allergies Allergies & Medications Allergies codeine Adverse Reaction (Severe, Verified 02/25/25 14:24) CHEST PAINS Medication Reconciliation albuterol sulfate 90 mcg/actuation aerosol inhaler 2 puff inhalation Q6H PRN asthma 06/27/20 [History Confirmed 02/25/25] tamsulosin 0.4 mg capsule (Flomax) 0.4 mg PO QDAY 01/06/24 [History Confirmed 02/25/25] meloxicam 7.5 mg tablet 7.5 mg PO QDAY #45 tabs 03/24/24 [Rx Confirmed 02/25/25] acetaminophen 500 mg tablet (Acetaminophen Extra Strength) 1,000 mg (2 x 500 mg) PO Q6H PRN pain #90 tabs 10/12/24 [Rx Confirmed 02/25/25] aspirin 81 mg tablet,delayed release 81 mg PO BID #60 tabs 10/12/24 [Rx Confirmed 02/25/25] doxycycline hyclate 100 mg tablet 100 mg PO BID #14 tabs 10/12/24 [Rx Confirmed 02/25/25] gabapentin 300 mg capsule 300 mg PO .qhs #30 caps 10/12/24 [Rx Confirmed 02/25/25] hydrocodone 10 mg-acetaminophen 325 mg tablet 1 tab PO Q6H PRN pain #28 tabs 10/12/24 [Rx Confirmed 02/25/25] hydroxyzine HCl 10 mg tablet 10 mg PO TID 10/12/24 [History Confirmed 02/25/25] lisinopril 20 mg-hydrochlorothiazide 25 mg tablet 1 tab PO DAILY 10/12/24 [History Confirmed 02/25/25] montelukast 10 mg tablet 10 mg PO QPM 10/12/24 [History Confirmed 02/25/25] sennosides 8.6 mg-docusate sodium 50 mg tablet (Senna-S) 1 tab-cap PO QDAY #30 tabs 10/12/24 [Rx Confirmed 02/25/25] duloxetine 60 mg capsule,delayed release mg PO 02/08/25 [History Confirmed 02/25/25] MA Intake Visit Data Collection New Patient or Established: Established Patient (seen at [facility] within 3 years) Seen by Clinical Staff ONLY (RN/MA): No Reason for Visit:: POST OP Pain Present Currently: No Pain scale:: 0 Pain Scale Used: Garcia-Eng/Numerical Academic Program Specialist Required: No PCP or OBGYN visit in last 3 months: Yes Hx Now: No Do You Feel Safe at Home: Yes Authorities Contacted: N/A Smoking Status Smoking Status: Former smoker Immunization / Flu Flu Vaccine in the Last 12 Months: No Flu Vaccine Exclusion Criteria: No Exclusion Criteria Past Medical History Past Medical History NEUROLOGIC: Positive Neurological Disorders and 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[place]); Negative Seizures CARDIAC: Positive Cardiac Disorders, Myocardial Infarction (2014 mild), Hypertension and Varicose Veins; Negative Congestive Heart Failure, Edema or Cellulitis RESPIRATORY: Positive Chronic Obstructive Pulmonary Disease (COPD), Asthma and Pneumonia; Negative Tuberculosis, Sleep Apnea, Smoking or Smoking Exposure GASTROINTESTINAL: Positive Gastrointestinal Disorders, Ulcer and Gastroesophageal Reflux Disease; Negative Hepatitis GENITOURINARY: Negative Genitourinary Disorders or Renal Disease MUSCULOSKELETAL: Positive Arthritis, Degenerative Disk Disease, Carpal Tunnel Syndrome and Fractures (pelvic bone at 19yrs old) ENT: Positive Cataracts ENDOCRINE: Negative Endocrine Disorders, Diabetes Mellitus Type 1 or Diabetes Mellitus Type 2 HEMATOLOGIC: Negative Blood Disorders or Sickle Cell Disease PSYCHO/SOCIAL: Positive Recreational Drug Use (2000), Depression and Anxiety OTHER HISTORY: Positive Hospitalization, Falls, Chicken Pox, Measles, Mumps and Cancer; Negative Autoimmune Disease, Shingles, Blood Transfusions, Blood Transfusion Reaction, Anesthesia Reactions, Chemotherapy, Radiation Therapy or MRSA Family History FAMILY HISTORY: Positive Family Cardiac Disorders, Family Gastrointestinal Problems and Family Surgery; Negative Family Psychiatric Problems, Family Respiratory Disorders, Family Cancer or Family Anesthesia Reaction Surgical History SURGICAL: Positive Cardiac Surgery, Angiogram (coronary), Abdominal Surgery, Joint Replacement and Neurologic Surgery (subdural hematoma had removed at [place]); Negative Pacemaker Social History SMOKING STATUS: Smoking status: Former smoker PACK YEARS: Pack-Years: 51 SECOND HAND EXPOSURE: second hand exposure: Yes ALCOHOL: Alcohol Intake: Current ALCOHOL FREQUENCY: Alcohol Intake Frequency: holidays/special occasions only HOUSING: Housing: House LIVES WITH: Lives With: Spouse Travel Risk Travel Hx Recent Travel: No HPI HPI Narrative 69M who presented with acute cholecystitis s/p lap kavita 02/09 here for planned follow up. Pt reports feeling well overall, he has no pain, no nausea, is eating well and having regular BMs without any diarrhea. He noted some redness of his umbilical and epigastric incisions previously but it has improved at both sites ROS Review of Systems Systems Reviewed: All systems reviewed, normal except as documented Objective/Exam General General Appearance: alert, cooperative and well groomed Resp Respiratory exam: Absent respiratory distress Abdominal Abdominal exam: Present soft and incision (c/d/i, mild erythema at umbilical incision, no fluctuance, no tenderness or drainage); Absent distention or tenderness Results Pathology of gallbladder reviewed Assessment & Plan Diagnosis / Problem List (1) Gangrenous cholecystitis: Status: Acute Assessment & Plan: 69M s/p lap kavita for gangrenous cholecystitis 02/09, recovering well Plan: Avoid strenuous activity including lifting objects >10lbs for 6 weeks postop F/u as needed Advanced Care Planning Advance care planning discussed with:: patient Office Procedures GNS Level of Care Nursing/Assessment Patient Status: Established Patient Nursing Assessment/Reassesment: Medication Reconciliation, Update PMH in EMR and Vital Signs Coordination of Care: Complex Care and Chronic Disease 1-5, Education Complex Pt/Fam, Consent,records obtained, informed consent, Results/Orders obtained and Staff clarify orders Established Patient Charge Established Patient Point Assignment: 95 Established Patient Point Charge: EP Level 3 (80-115) Patient Portal Questionaires Social History Living Situation History Housing: House Housing Other:: Lives with his Tobacco History Smoking Status: Former smoker Packs per Day: 3 Pack-Years: 51 Second Hand Smoke Exposure: Yes Alcohol History Alcohol Intake: Current Alcohol Intake Frequency: holidays/special occasions only Substance Use History 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 Domestic Abuse History Do You Feel Safe at Home: Yes Review of Systems Report any current symptoms Only answer those that you have currently: Past Medical History Past Medical History Have you ever been diagnosed with any of the following: Neurological Problems Seizures: No Subdural Hematoma: Yes (has surgery in [place]) Cardiology Problems Myocardial Infarction: Yes (2013 mild) Congestive Heart Failure: No Edema: No Cellulitis: No Hypertension: Yes Varicose Veins: Yes Respiratory Problems Chronic Obstructive Pulmonary Disease (COPD): Yes Asthma: Yes Pneumonia: Yes Tuberculosis: No Sleep Apnea: No Smoking: No Smoking Exposure: No Stomache/Intestinal Problems Hepatitis: No Ulcer: Yes Gastroesophageal Reflux Disease: Yes Genital/Urinary Problems Renal Disease: No Musculoskeletal Problems Arthritis: Yes Degenerative Disk Disease: Yes Carpal Tunnel Syndrome: Yes Fractures: Yes (pelvic bone at 19yrs old) Head,Eye,Nose,Throat Problems Cataracts: Yes Endocrine Problems Diabetes Mellitus Type 1: No Diabetes Mellitus Type 2: No Blood Problems Sickle Cell Disease: No Psychologic Problems Recreational Drug Use: Yes (clean 2000) Depression: Yes Anxiety: Yes Other Problems Hospitalization: Yes Autoimmune Disease: No Shingles: No Falls: Yes Blood Transfusions: No Blood Transfusion Reaction: No Anesthesia Reactions: No Chemotherapy: No Radiation Therapy: No MRSA: No Chicken Pox: Yes Measles: Yes Mumps: Yes Cancer: Yes Surgical History Pacemaker: No
[2025-02-25 14:26] VITALS: BP 112/64; PULSE 66; RESP 18; TEMP 36.1; O2SAT 95
== END 2025-02-25 14:39 | disposition home or self-care (01) ==
LOC: HODSRG 14:10
PROVIDERS: PCP Family Medicine; Referring Provider Family Medicine; Supervising Provider Surgery; Visit Provider Surgery
DX: Z48.815 Encounter for surgical aftercare following surgery on the digestive system (principal)
CPT/HCPCS: 99213; G0463

== ENCOUNTER → 2025-03-29 | Outpatient (CLI) | payer MEDICARE, MEDICAID, SELFPAY ==
[2025-03-29 12:14] LABS: Basophils # (Auto) 0.1 Thou/mm3 (0.0-0.2); Basophils % (Auto) 1 % (0-2.5); Eosinophils # (Auto) 0.2 Thou/mm3 (0.0-0.5); Eosinophils % (Auto) 2 % (0-10); Hematocrit 41.5 % (41.0-53.0); Hemoglobin 13.7 g/dL (13.5-16.0); Immature Granulocytes % (Auto) 0 % (0-0); Immature Granulocytes Auto 0.01 Thou/mm3 (0.00-0.00); Lymphocytes # (Auto) 2.1 Thou/mm3 (1.0-4.8); Lymphocytes % (Auto) 25 % (10-50); Mean Corpuscular Hemoglobin 28.5 pg (25.0-35.0); Mean Corpuscular Volume 87 fL (80-100); Monocytes # (Auto) 0.8 Thou/mm3 (0.0-0.8); Monocytes % (Auto) 10 % (0-12); Neutrophils # (Auto) 5.3 Thou/mm3 (1.8-7.7); Neutrophils % (Auto) 63 % (37-80); Nucleated Red Blood Cell % 0 /100 WBC (0); Platelet Count 246 Thou/mm3 (140-440); RDW Standard Deviation 47.6 fL (35.1-43.9); White Blood Count 8.4 Thou/mm3 (3.8-10.6)
[2025-03-29 12:19] LABS: Glucose Estimated Average 123 mg/dL (80-131); Hemoglobin A1C 5.9 % Hgb (4.8-6.0)
[2025-03-29 12:32] LABS: Alanine Aminotransferase 20 U/L (10-49); Albumin, Serum 4.4 gm/dL (3.4-4.8); Albumin/Globulin Ratio 1.4 (1.2-2.2); Alkaline Phosphatase 64 U/L (46-116); Anion Gap 9 (7-16); Aspartate Amino Transferase 21 U/L (0-34); BUN/Creatinine Ratio 19 Ratio (12-20); Bilirubin,Total 0.6 mg/dL (0.3-1.2); Blood Urea Nitrogen 17 mg/dL (9-23); Calcium 9.1 mg/dL (8.3-10.6); Calcium (Corrected) 9.1 mg/dL (8.5-10.1); Carbon Dioxide 29.4 mMol/L (20.0-31.0); Cardiac Risk Estimate 4.9 RATIO (4.0-6.7); Chloride 103 mMol/L (98-107); Cholesterol 187 mg/dL (132-200); Creatinine (Component) 0.9 mg/dL (0.6-1.3); Globulin 3.1 gm/dL (2.3-3.5); Glucose 115 mg/dL (74-106); HDL Cholesterol 38 mg/dL (40-60); LDL Cholesterol,Calculated 123 mg/dL (0-130); Osmolality,Calculated 283 (275-295); Sodium 141 mMol/L (136-145); Total Protein 7.5 gm/dL (5.7-8.2); Triglycerides 130 mg/dL (30-150); eGFR > 60 See Note
[2025-03-29 12:33] LABS: PSA Medicare Annual Scrn 0.66 ng/mL (0-4.00); T4 (Thyroxine) 6.2 mcg/dL (4.5-10.9)
== END | disposition home or self-care (01) ==
LOC: COPL 11:33
PROVIDERS: PCP Family Medicine; Referring Provider Nurse Practitioner Family; Visit Provider Nurse Practitioner Family
DX: I10 Essential (primary) hypertension (principal); Z12.5 Encounter for screening for malignant neoplasm of prostate
CPT/HCPCS: 36415; 80053; 80061; 83036; 84153; 84436; 84443; 85025; G0103

== ENCOUNTER → 2025-04-02 | Outpatient (CLI) | payer MEDICARE, MEDICAID, SELFPAY ==
[2025-04-08 06:38] LABS: Fecal Globin Result NOT DETECTED (NOT DETECTED)
== END | disposition home or self-care (01) ==
PROVIDERS: PCP Nurse Practitioner Family; Referring Provider Nurse Practitioner Family; Visit Provider Nurse Practitioner Family
DX: Z12.11 Encounter for screening for malignant neoplasm of colon (principal)
CPT/HCPCS: 82274; G0328